=== PATIENT | male | born 1985 | race Caucasian/White ===

== ENCOUNTER 2016-08-19 10:05 | Emergency (ER) | payer MEDICAID ==
[2016-08-19 10:10] VITALS: RESP 16
--- NOTE | 2016-08-19 10:14 | EDPHY ---
H & P Stated Complaint: Pain in left buttock area,no known injury;denies problems w/ bowels HPI/ROS: CHIEF COMPLAINT: "Stressed out anal sphincter" HISTORY OF PRESENT ILLNESS: This patient is a healthy 31 year old male complaining of an uncomfortable sensation in his rectal area onset 3-4 days ago. He states he feels as if he has a "stressed out" sphincter muscle, and associated discomfort like a pulled muscle in his "saddle area" on the left side which he likens to the feeling of a deep bruise. He denies pain, urgency or straining with bowel movements, constipation, blood in his stool, or history of hemorrhoids. No testicular pain or penile drainage. He denies any recent trauma. He states he has not noted any masses or lumps. He states he rides his bike 400 miles per week, but has not had any changes to his cycling equipment or routine lately. His significant other at bedside states they have been more stressed than usual at work lately. He denies fever, vomiting, diarrhea, dizziness, lightheadedness, urinary complaints, or other associated symptoms. REVIEW OF SYSTEMS: A ten point review of systems was performed and is negative with the exception of the items mentioned in the HPI. - Personal History Current Tetanus Diphtheria and Acellular Pertussis (TDAP): Yes Tetanus Vaccine Date: 2014 - Medical/Surgical History PMH: Anxiety. Hx Asthma: No Hx Chronic Respiratory Disease: No Hx Diabetes: No Hx Cardiac Disease: No Hx Renal Disease: No Hx Cirrhosis: No Hx Alcoholism: No Hx HIV/AIDS: No Hx Splenectomy or Spleen Trauma: No Other PMH: heart murmur, mole removal, anxiety, depression - Social History Smoking Status: Never smoked Additional Social History: Social alcohol use. Nonsmoker. No illicit drug use. [employer]. Significant other at bedside. Rides his bike 300-400 miles per week. - Physical Exam Exam: General Appearance: Alert. Vital signs reviewed. Blood pressure 150/65. Eyes: Pupils equal and round, no conjunctival injection, no discharge. Anicteric. ENT, Mouth: Mucous membranes are moist, no oropharyngeal erythema or edema. Neck: No lymphadenopathy, supple. Respiratory: Lungs are clear to auscultation; no wheezes, rales, or rhonchi. Cardiovascular: Regular rate and rhythm; no murmur, rub, or gallop. Gastrointestinal: Abdomen is soft and nontender, no masses or organomegaly, bowel sounds normal. Rectal: No external pain, swelling, or tenderness. Sensation normal. Nl anal wink. Prostate normal, no enlargement or tenderness. No hemorrhoids visualized. Small amount of brown stool on glove. Do not see or feel any swelling, redness, or tenderness to rectal area, buttocks, or perineum. Genitourinary: Normal circumcised male. Bilaterally descended testes. No masses , tenderness. Skin: Warm and dry, no rashes on exposed skin, normal color. Back: Nontender to palpation over the thoracolumbar spine. No CVAT. Extremities: No lower extremity edema, no calf tenderness or swelling. Neurological: Alert and oriented. Moving all four extremities easily and equally. Psychiatric: Normal affect. Constitutional: Initial Vital Signs Temperature (C) 36.4 C 08/19/16 10:07 Heart Rate 58 L 08/19/16 10:07 Respiratory Rate 16 08/19/16 10:07 Blood Pressure 150/65 H 08/19/16 10:07 O2 Sat (%) 100 08/19/16 10:07 O2 Delivery Mode Room Air Allergies/Adverse Reactions: No Known Allergies Allergy (Verified 08/19/16 10:06) Home Medications: Medication Instructions Recorded NK [No Known Home Meds] 06/10/15 Medical Decision Making ED Course/Re-evaluation: This patient is a 31 year old male presenting with 4 day history of rectal and pelvic discomfort. Physical exam unremarkable. I do not see or feel any swelling, redness, or tenderness to rectal area, buttocks, or perineum. Prostate normal. Scrotum normal. No masses or lumps observed or palpated. Plan for UA to further assess potential causes for the patient's discomfort. UA normal. Plan to discharge home in good condition. Continue to monitor symptoms, use ibuprofen as needed for management of discomfort. The patient is comfortable with this plan. Differential Diagnosis: I considered a ddx that includes but is not limited to rectal or perirectal abscess, hemorrhoids (internal or external, thrombosed or not), UTI, prostatitis , STD, muscle strain. Departure - Departure Disposition: Home, Routine, Self-Care Clinical Impression: Rectal pain, Pelvic pain Condition: Good Instructions: Pelvic Pain in Men (ED), Rectal Pain (ED) Additional Instructions: 1. You may take ibuprofen or Tylenol as needed for pain control as directed below. 2. We have referred you to our primary care provider learning operations specialist. Follow up as needed for symptoms unresolved in the next 4-5 days. Adult Pain Control: We recommend Acetaminophen (Tylenol) and Ibuprofen (Motrin,Advil) for pain control. When pain is severe, both drugs can be used at the same time, but at different intervals. Please note the time differences. Your dose is: Acetaminophen 650mg every 4 to 6 hours Ibuprofen 400mg every 6-8 hours with food. Note: do not take Acetaminophen with Hydrocodone (Vicodin, Lortab) or Oxycodone (Percocet). These medications also contain Acetaminophen. No more than 3000mg of Acetaminophen should be taken in 24 hours (for an adult). Referrals: Miranda Velez MD [Medical Doctor] - As per Instructions Report Scribed for: Trinity Tierney Report Scribed by: Concha Barone Date of Report: 08/19/16 Time of Report: 10:17 Physician Review and Approval Statement: 08/19/16 10:14 Portions of this note were transcribed by the medical records auditor. I, Dr. Trinity Tierney, personally performed the history, physical exam, and medical decision- making; and confirmed the accuracy of the information in the transcribed note.
[2016-08-19 11:17] LABS: COLOR YELLOW; LEUKOCYTE ESTERASE,URINE NEGATIVE (NEGATIVE); NITRITE,URINE NEGATIVE (NEGATIVE)
[2016-08-19 12:20] VITALS: BP 125/74; PULSE 48; TEMP 97.7; O2SAT 99
== END 2016-08-19 12:19 | disposition home or self-care (01) ==
DX: K62.89 Other specified diseases of anus and rectum (principal); R10.2 Pelvic and perineal pain